=== PATIENT | female | born 1930 | race African-American/Black ===

== ENCOUNTER 2020-09-09 17:25 | Emergency (ER) | payer MEDICARE, OTHER ==
[~2020-09-09] VITALS: Ht 167.6 cm; Wt 70.0 kg
[~2020-09-09 17:25] MED LIST: ASPI-1406 PO; LEVO500T2 PO; PRIL10 PO
[2020-09-09] MEDS ORDERED: VISCOUS LIDOCAINE 2% 15 ML UDC PO STA (18:38)
[2020-09-09] MEDS ORDERED: DICYCLOMINE 10 MG/5 ML ORAL SYR PO STA (18:38)
[2020-09-09] MEDS ORDERED: MAGNESIUM/ALUMINUM HYDROXIDE/SIMETHICONE 30ML UDC PO STA (18:38)
[2020-09-09 20:23] VITALS: BP 126/78
== END 2020-09-09 20:24 | disposition home or self-care (01) ==
LOC: ER 17:25
DX: T18.8XXA Foreign body in other parts of alimentary tract, initial encounter (principal); K21.9 Gastro-esophageal reflux disease without esophagitis; Z88.6 Allergy status to analgesic agent; Z79.899 Other long term (current) drug therapy; Z79.82 Long term (current) use of aspirin; X58.XXXA Exposure to other specified factors, initial encounter; Y93.89 Activity, other specified; Y92.89 Other specified places as the place of occurrence of the external cause; Y99.8 Other external cause status
CPT/HCPCS: 70360; 71045; 99284

== ENCOUNTER 2020-09-19 17:34 | Emergency (ER) | payer MEDICARE ==
[~2020-09-19] VITALS: Ht 160 cm; Wt 49.0 kg
[2020-09-19 19:48] LABS: CHLORIDE 108 mEq/L (98-107)
[2020-09-19 19:56] LABS: BASOPHILS % 0.8 % (0.0-2.0); EOSINOPHILS % 4.9 % (0.0-5.0); HEMATOCRIT. 33.7 % (36.0-48.0); HEMOGLOBIN. 11.4 g/dL (12.0-16.0); LYMPHOCYTES % 42.9 % (20.0-50.0); MEAN CORPUSCULAR HEMOGLOBIN 31.6 pg (28.0-32.0); MEAN CORPUSCULAR VOLUME 93.9 fL (81.0-99.0); MEAN PLATELET VOLUME 8.9 fl (7.4-10.4); MONOCYTES % 8.6 % (2.0-8.0); NEUTROPHILS % 42.8 % (40.0-76.0); PLATELET 153 x1000/uL (130-400); RED BLOOD CELL COUNT 3.59 mill/uL (4.2-5.4)
[2020-09-19 23:30] VITALS: BP 132/62
== END 2020-09-19 23:46 | disposition home or self-care (01) ==
LOC: ER 17:34
DX: T17.208A Unspecified foreign body in pharynx causing other injury, initial encounter (principal); F41.9 Anxiety disorder, unspecified; I49.9 Cardiac arrhythmia, unspecified; X58.XXXA Exposure to other specified factors, initial encounter; Y93.89 Activity, other specified; Y92.89 Other specified places as the place of occurrence of the external cause; Y99.8 Other external cause status
CPT/HCPCS: 36415; 70490; 71045; 80048; 84484; 85025; 93005; 99285

== ENCOUNTER 2021-06-10 09:10 | Emergency (ER) | payer MEDICARE, OTHER ==
[~2021-06-10] VITALS: Ht 162.6 cm; Wt 49.0 kg
[2021-06-10 09:23] VITALS: BP 139/85
[2021-06-10] MEDS ORDERED: CEPH500C2 MT (09:43)
[2021-06-10] MEDS: ACETAMINOPHEN 325MG TABLET PO ONE ×2 (10:03→10:06)
== END 2021-06-10 10:12 | disposition home or self-care (01) ==
LOC: ER 09:10
DX: L60.0 Ingrowing nail (principal); K21.9 Gastro-esophageal reflux disease without esophagitis; Z87.39 Personal history of other diseases of the musculoskeletal system and connective tissue; Z88.6 Allergy status to analgesic agent; Z79.899 Other long term (current) drug therapy
CPT/HCPCS: 99282

== ENCOUNTER 2022-02-17 21:19 | Emergency (ER) | payer MEDICARE, OTHER ==
[~2022-02-17] VITALS: Ht 162.6 cm; Wt 50.0 kg
[~2022-02-17 21:19] MED LIST changes: +CEPH500C2 MT
[2022-02-17 21:51] VITALS: BP 146/68
== END 2022-02-17 23:29 | disposition home or self-care (01) ==
LOC: ER 21:19
DX: T18.120A Food in esophagus causing compression of trachea, initial encounter (principal); X58.XXXA Exposure to other specified factors, initial encounter; F03.90 Unspecified dementia, unspecified severity, without behavioral disturbance, psychotic disturbance, mood disturbance, and anxiety; Y93.89 Activity, other specified; Y92.89 Other specified places as the place of occurrence of the external cause
CPT/HCPCS: 70360; 99283

== ENCOUNTER 2022-03-07 19:35 | Emergency (ER) | payer OTHER ==
[~2022-03-07] VITALS: Ht 162.6 cm; Wt 48.6 kg
[2022-03-07] MEDS ORDERED: VANCOMYCIN 1G PREMIX 200 ML IV ONE (21:15)
[2022-03-07] MEDS ORDERED: PIPERACILLIN/TAZ 3.375G PREMIX 50 ML IV ONE (21:15)
[2022-03-07 21:28] LABS: BASOPHILS % 0.4 % (0.0-2.0); EOSINOPHILS % 0.8 % (0.0-5.0); HEMATOCRIT. 36.2 % (36.0-48.0); LYMPHOCYTES % 34.7 % (20.0-50.0); MEAN CORPUSCULAR HEMOGLOBIN 31.4 pg (28.0-32.0); MEAN CORPUSCULAR VOLUME 94.5 fL (81.0-99.0); MEAN PLATELET VOLUME 8.5 fl (7.4-10.4); MONOCYTES % 7.4 % (2.0-8.0); NEUTROPHILS % 56.7 % (40.0-76.0); PLATELET 166 x1000/uL (130-400); RED BLOOD CELL COUNT 3.83 mill/uL (4.2-5.4); RED CELL DISTRIBUTION WIDTH 13.9 % (11.6-14.6)
[2022-03-07 21:30] LABS: CLARITY URINE CLEAR (CLEAR); COLOR URINE YELLOW (YELLOW); KETONES URINE NEGATIVE (NEGATIVE); LEUKOCYTE ESTERASE URINE NEGATIVE (NEGATIVE); NITRITE URINE NEGATIVE (NEGATIVE); OCCULT BLOOD URINE NEGATIVE (NEGATIVE); PROTEIN URINE NEGATIVE (NEGATIVE); SPECIFIC GRAVITY URINE 1.008 (1.005-1.030); UROBILINOGEN URINE 0.2 E.U./dL (0.2-1.0)
[2022-03-07 21:36] LABS: CHLORIDE 106 mEq/L (98-107)
[2022-03-07 21:39] LABS: INR 1.1; PROTHROMBIN TIME 11.8 sec (9.6-11.0)
[2022-03-07] MEDS ORDERED: DOXY100C5 MT (22:15)
[2022-03-07] MEDS ORDERED: CEPH500C2 MT (22:15)
[2022-03-07 23:00] VITALS: BP 150/67
== END 2022-03-07 23:34 | disposition home or self-care (01) ==
LOC: ER 19:50
DX: L03.032 Cellulitis of left toe (principal); R60.9 Edema, unspecified; F03.90 Unspecified dementia, unspecified severity, without behavioral disturbance, psychotic disturbance, mood disturbance, and anxiety; K21.9 Gastro-esophageal reflux disease without esophagitis; Z79.899 Other long term (current) drug therapy; Z20.822 Contact with and (suspected) exposure to COVID-19
CPT/HCPCS: 36415; 71045; 80053; 81003; 83605; 83880; 84145; 84484; 85025; 85610; 87040; 87086; 87426; 93005; 96365; 96368; 99285; C9803; J2543; J3370

== ENCOUNTER 2022-03-15 09:18 | Emergency (ER) | payer OTHER ==
[~2022-03-15] VITALS: Ht 162.6 cm; Wt 49.0 kg
[~2022-03-15 09:18] MED LIST changes: +DOXY100C5 MT
[2022-03-15 10:07] VITALS: BP 122/68
== END 2022-03-15 11:26 | disposition home or self-care (01) ==
LOC: ER 09:47
DX: M79.662 Pain in left lower leg (principal); M79.672 Pain in left foot; R20.8 Other disturbances of skin sensation; Z86.19 Personal history of other infectious and parasitic diseases
CPT/HCPCS: 93971; 99284

== ENCOUNTER 2022-03-19 12:11 | Emergency (ER) | payer OTHER ==
[~2022-03-19] VITALS: Ht 160 cm; Wt 65.0 kg
[2022-03-19 13:23] LABS: HEMATOCRIT. 37.7 % (36.0-48.0); HEMOGLOBIN. 12.3 g/dL (12.0-16.0); MEAN CORPUSCULAR HEMOGLOBIN 31.1 pg (28.0-32.0); MEAN CORPUSCULAR VOLUME 95.5 fL (81.0-99.0); MEAN PLATELET VOLUME 7.9 fl (7.4-10.4); PLATELET 145 x1000/uL (130-400); RED BLOOD CELL COUNT 3.94 mill/uL (4.2-5.4); RED CELL DISTRIBUTION WIDTH 14.5 % (11.6-14.6)
[2022-03-19 13:29] LABS: CHLORIDE 108 mEq/L (98-107)
[2022-03-19 14:35] LABS: PLATELET ESTIMATE NORMAL
[2022-03-19 15:24] LABS: CLARITY URINE CLEAR (CLEAR); COLOR URINE YELLOW (YELLOW); KETONES URINE TRACE (NEGATIVE); LEUKOCYTE ESTERASE URINE NEGATIVE (NEGATIVE); NITRITE URINE NEGATIVE (NEGATIVE); OCCULT BLOOD URINE NEGATIVE (NEGATIVE); PH URINE 5.5 (4.5-8.0); PROTEIN URINE TRACE (NEGATIVE); UROBILINOGEN URINE 0.2 E.U./dL (0.2-1.0)
[2022-03-19] MEDS ORDERED: NA PHOS,M-B/NA PHOS,DI-BA ENEMA 118ML PR ONE (17:30)
[2022-03-19 20:00] VITALS: BP 140/83
== END 2022-03-19 20:00 | disposition home or self-care (01) ==
LOC: ER 12:11
DX: K59.00 Constipation, unspecified (principal); F41.9 Anxiety disorder, unspecified; I10 Essential (primary) hypertension; I49.9 Cardiac arrhythmia, unspecified
CPT/HCPCS: 36415; 71045; 74176; 80053; 81003; 83605; 83880; 84484; 85025; 93005; 99285

== ENCOUNTER 2022-03-22 11:58 | Emergency (ER) | payer OTHER ==
[~2022-03-22] VITALS: Ht 172.7 cm; Wt 72.0 kg
[2022-03-22] MEDS ORDERED: CEFTRIAXONE 1 G PREMIX 50 ML IV ONE (12:30)
[2022-03-22] MEDS ORDERED: VANCOMYCIN 1G PREMIX 200 ML IV ONE (12:30)
[2022-03-22 13:37] LABS: BASOPHILS % 0.7 % (0.0-2.0); HEMATOCRIT. 35.1 % (36.0-48.0); HEMOGLOBIN. 11.5 g/dL (12.0-16.0); MEAN CORPUSCULAR HEMOGLOBIN 31.1 pg (28.0-32.0); MEAN CORPUSCULAR VOLUME 95.5 fL (81.0-99.0); MEAN PLATELET VOLUME 10.2 fl (7.4-10.4); MONOCYTES % 7.3 % (2.0-8.0); PLATELET 167 x1000/uL (130-400); RED BLOOD CELL COUNT 3.68 mill/uL (4.2-5.4)
[2022-03-22 13:45] LABS: CHLORIDE 108 mEq/L (98-107)
[2022-03-22 14:58] LABS: CLARITY URINE CLEAR (CLEAR); COLOR URINE DARK YELLOW (YELLOW); KETONES URINE NEGATIVE (NEGATIVE); LEUKOCYTE ESTERASE URINE 2+ (NEGATIVE); NITRITE URINE NEGATIVE (NEGATIVE); OCCULT BLOOD URINE NEGATIVE (NEGATIVE); PROTEIN URINE TRACE (NEGATIVE); SPECIFIC GRAVITY URINE 1.017 (1.005-1.030)
[2022-03-22 16:00] VITALS: BP 134/52
[2022-03-22] MEDS ORDERED: VANCOMYCIN 1G PREMIX 200 ML IV NR (16:00)
== END 2022-03-22 19:15 | disposition home or self-care (01) ==
LOC: ER 11:58 → CANBEDREQ 17:00 → ER 19:15
DX: L03.114 Cellulitis of left upper limb (principal); L03.113 Cellulitis of right upper limb; N39.0 Urinary tract infection, site not specified; R79.9 Abnormal finding of blood chemistry, unspecified; L03.116 Cellulitis of left lower limb; L03.115 Cellulitis of right lower limb; I10 Essential (primary) hypertension
CPT/HCPCS: 36415; 71045; 80053; 81003; 83605; 84145; 85025; 87040; 87086; 93005; 96365; 96367; 99285; J0696; J3370

== ENCOUNTER 2022-04-04 12:44 | Emergency (ER) | payer OTHER ==
[~2022-04-04] VITALS: Ht 162.6 cm; Wt 60.0 kg
[2022-04-04 13:03] VITALS: BP 146/124
[2022-04-04] MEDS ORDERED: CEFAZOLIN 1000MG PREMIX 50 ML IV NR (18:30)
[2022-04-04 18:54] LABS: BASOPHILS % 0.5 % (0.0-2.0); EOSINOPHILS % 0.9 % (0.0-5.0); HEMOGLOBIN. 12.2 g/dL (12.0-16.0); LYMPHOCYTES % 32.2 % (20.0-50.0); MEAN CORPUSCULAR HEMOGLOBIN 31.8 pg (28.0-32.0); MEAN CORPUSCULAR VOLUME 93.8 fL (81.0-99.0); MONOCYTES % 6.5 % (2.0-8.0); NEUTROPHILS % 59.9 % (40.0-76.0); PLATELET 219 x1000/uL (130-400); RED BLOOD CELL COUNT 3.84 mill/uL (4.2-5.4); RED CELL DISTRIBUTION WIDTH 14.6 % (11.6-14.6)
[2022-04-04 19:00] LABS: CHLORIDE 112 mEq/L (98-107)
[2022-04-04] MEDS ORDERED: CLIN-194 MT (20:41)
[2022-04-05] MEDS ORDERED: CLIN-194 MT (17:21)
== END 2022-04-04 21:00 | disposition home or self-care (01) ==
LOC: ER 12:44
DX: L03.115 Cellulitis of right lower limb (principal); F41.9 Anxiety disorder, unspecified; F03.90 Unspecified dementia, unspecified severity, without behavioral disturbance, psychotic disturbance, mood disturbance, and anxiety; I10 Essential (primary) hypertension; Z79.899 Other long term (current) drug therapy
CPT/HCPCS: 36415; 80053; 84145; 85025; 96365; 99284; J0690

== ENCOUNTER 2022-04-26 08:59 | Emergency (ER) | payer OTHER ==
[~2022-04-26] VITALS: Ht 162.6 cm; Wt 48.0 kg
[~2022-04-26 08:59] MED LIST changes: +CLIN-194 MT
[2022-04-26 09:11] VITALS: BP 145/88
[2022-04-26] MEDS ORDERED: NAPR500T7 MT (10:54)
== END 2022-04-26 11:20 | disposition home or self-care (01) ==
LOC: ER 08:59
DX: R21 Rash and other nonspecific skin eruption (principal); I10 Essential (primary) hypertension
CPT/HCPCS: 99282